=== PATIENT | male | born 2000 | race Caucasian/White ===

== ENCOUNTER 2025-07-04 18:23 | Emergency (ER) | payer BC ==
[2025-07-04] MEDS ORDERED: Ketorolac 60 MG/2 ML SDV IVPUSH STA (19:08)
[2025-07-04 19:30] LABS: BASOPHILS ABSOLUTE AUTO 0.1 K/mm3 (0.0-0.2); BASOPHILS PERCENT AUTO 0.8 % (0.0-1.0); EOSINOPHILS ABSOLUTE AUTO 0.2 K/mm3 (0.0-0.4); EOSINOPHILS PERCENT AUTO 1.9 % (0.0-6.0); IMMATURE GRAN ABSOLUTE AUTO 0.02 K/mm3 (0.00-0.05); IMMATURE GRAN PERCENT AUTO 0.3 % (0.0-0.4); LYMPHOCYTES ABSOLUTE AUTO 2.9 K/mm3 (1.0-4.8); LYMPHOCYTES PERCENT AUTO 36.8 % (24.0-44.0); MEAN PLATELET VOLUME 8.7 fl (9.4-12.4); MONOCYTES ABSOLUTE AUTO 0.7 K/mm3 (0.0-0.8); MONOCYTES PERCENT AUTO 9.3 % (0.0-8.0); NEUTROPHILS ABSOLUTE AUTO 4.0 K/mm3 (1.8-7.7); NEUTROPHILS PERCENT AUTO 50.9 % (41.0-71.0); NRBC ABSOLUTE 0.00 (0.00-0.02); NRBC PERCENT 0.0 % (0.0-0.2); PLATELET COUNT,PLT 203 K/mm3 (150-400); RED BLOOD CELL COUNT 4.56 M/mm3 (4.52-5.90); WHITE BLOOD CELL COUNT,WBC 7.78 K/mm3 (3.9-11.3)
[2025-07-04] MEDS: Iopamidol 612 MG/ML 100 ML Bottle IVPUSH ONE (19:36)
[2025-07-04] MEDS: Ketorolac 30 MG/ML SDV IVPUSH STA (19:46)
[2025-07-04 19:59] LABS: APPEARANCE,URINE CLEAR (Clear); GLUCOSE,URINE NEGATIVE (Negative); OCCULT BLOOD,URINE NEGATIVE (Negative)
[2025-07-04 20:05] LABS: INR 1.05
[2025-07-04 20:08] LABS: BUPRENORPHINE SCREEN,URINE NEGATIVE (CUTOFF=10); METHADONE SCREEN, URINE NEGATIVE (CUT0FF=200); METHAMPHETAMINES SCREEN, URINE NEGATIVE (CUTOFF=500); OXYCODONE SCREEN,URINE NEGATIVE (CUT0FF=100); THC SCREEN,URINE 20 NG/ML NEGATIVE (CUTOFF=50)
[2025-07-04 20:11] LABS: AMPHETAMINES SCREEN, URINE NEGATIVE (CUTOFF=500)
[2025-07-04 20:16] LABS: A/G RATIO 1.2 (1-2); ALANINE AMINOTRANSFERASE,ALT 25.0 U/L (16-63); ASPARTATE AMNIOTRANSFERASE,AST 17.0 U/L (15-37); BILIRUBIN TOTAL 0.5 mg/dL (0.2-1.0); BLOOD UREA NITROGEN,BUN 17.0 mg/dL (7-18); CARBON DIOXIDE,CO2 28.0 mEq/L (21-32); CHLORIDE,CL 106.0 mEq/L (98-107); CREATINE KINASE,CK 123.0 U/L (39-308); CREATININE 1.1 mg/dL (0.7-1.3); EST CRCL DRUG DOSING (CG) 117.03 mL/min; ESTIMATED GFR 96.0 mL/min (>60); GLUCOSE RANDOM 93.0 mg/dL (70-99); POTASSIUM,K 3.9 mEq/L (3.5-5.1); PROTEIN TOTAL,TP 7.4 g/dl (6.4-8.2); SODIUM,NA 141.0 mEq/L (136-145)
== END 2025-07-04 21:30 | disposition home or self-care (01) ==
LOC: JD.ED 18:23
DX: R10.12 Left upper quadrant pain (principal); R07.89 Other chest pain
CPT/HCPCS: 36415; 74177; 80053; 80306; 81003; 82550; 83690; 83735; 85025; 85610; 96374; 99284; J1885; Q9967